=== PATIENT | female | born 1945 | race African-American/Black ===

== ENCOUNTER 2023-08-31 09:00 | Outpatient (CLI) | payer OTHER | END 2023-08-31 09:01 | disposition home or self-care (01) | LOC: CSHWCC 09:00 | PROVIDERS: ATTEND Nurse Practitioner Family | DX: E11.621 Type 2 diabetes mellitus with foot ulcer (principal); L97.521 Non-pressure chronic ulcer of other part of left foot limited to breakdown of skin; I73.9 Peripheral vascular disease, unspecified; F03.B0 Unspecified dementia, moderate, without behavioral disturbance, psychotic disturbance, mood disturbance, and anxiety; S82.55XS Nondisplaced fracture of medial malleolus of left tibia, sequela; S91.115D Laceration without foreign body of left lesser toe(s) without damage to nail, subsequent encounter | CPT/HCPCS: 99213; G0463 ==